=== PATIENT | female | born 1985 | race Caucasian/White ===

== ENCOUNTER → 2020-02-14 | Outpatient (CLI) | payer OTHER ==
[~2020-02-14] MED LIST: CEPHALEXIN500 M1 PO; ERRIN0.35 M1 PO; KEFLEX 500 MG E2 CAP PO; SERTRALINE HYDR50 MG PO; birth control PO
== END | disposition home or self-care (01) ==
LOC: COVID19 15:40
DX: Z03.818 Encounter for observation for suspected exposure to other biological agents ruled out (principal)